=== PATIENT | female | born 1985 | race Caucasian/White ===

== ENCOUNTER 2017-03-27 06:19 | Emergency (ER) | payer OTHER ==
[2017-03-27 11:55] VITALS: BP 107/69; PULSE 89; O2SAT 100
--- NOTE | 2017-03-27 21:18 | OBHP ---
Datetime: 03/27/2017 06:45 IP Adm Impression: Term, intrauterine IP Admit Plan: Discharge home Admit Comment, IP Provider: 31 yo GP0 at 39.6 presents to the [facility] with ctx. She states that the ctx started approx 4 hrs before arrival. ctx every 5 minutes lasting 1 minute. pain 5/10. +: fm -: vb, lof, cp/sob/n/v/dysuria pnc: Dr. Jang obhx: current no abnormalities gyne: denies hx of sti, pap neg medhx: none famhx: htn, asthma surg: sinus and R eye soc: denies: smoking, alcohol, illicit drugs rx: pnv nkda gen: aaox3 cardiac: s1s2 no murmur lungs: clear bilaterally no wheezing abdomen: gravid, nontender negative: calf tenderness, CVT pelvic: closed 31 yo iup 39.6 - monitoring: reactive -close false labor case dw Dr. Maria L Ascencio MD PGY1 , Pt was seen and evaluated with the resident and I agree with the above. Pelvic Type - PN: Adequate Extremities - PN: Normal Abdomen - PN: Normal Back - PN: Normal Breast - PN: Not Done Lungs - PN: Normal Heart - PN: Normal Thyroid - PN: Not Done Neurologic - PN: Normal HEENT - PN: Normal General - PN: Normal FHR - Baseline A Provider: 130 EGA AdmitDate IP: 39.6 Vital Signs Provider: Reviewed; Within Normal Limits Vital Signs Provider Details: pt states bp is in normal range for her IP Chief Complaint: Uterine contractions NICHD Variability Prov Fetus A: Moderate 6-25bpm NICHD Accel Fetus A IP Provider: [id number] FHR Category Provider Fetus A: Category I NICHD Decel Fetus A IP Provider: None Dilatation, Provider: closed Genitourinary Exam: Normal DTRs - PN: Not Done
== END 2017-03-27 07:30 | disposition home or self-care (01) ==
LOC: H.EROB2 06:19
DX: O47.1 False labor at or after 37 completed weeks of gestation (principal); Z3A.39 39 weeks gestation of pregnancy

== ENCOUNTER 2017-03-29 16:46 | Inpatient (IN) | payer OTHER ==
[2017-03-29 16:51] VITALS: BMI 30.2
[2017-03-29 17:21] LABS: BASO % 0.2 % (0.0-2.0); EOS % 0.4 % (0.0-4.0); HEMOGLOBIN 13.8 g/dL (12.0-16.0); LYMPH # 2.1 K/uL (1.0-4.3); LYMPH % 20.4 % (20.0-40.0); MEAN CELL VOLUME 86.5 fl (81.0-99.0); MEAN CORPUSCULAR HGB CONC 33.5 g/dL (33.0-37.0); MEAN PLATELET VOLUME 7.5 fl (7.2-11.7); MONO % 9.8 % (0.0-10.0); NEUT % 69.2 % (50.0-75.0); NRBC % 0.1 % (0.0-0.0); RBC 4.75 Mil/uL (3.80-5.20); RED CELL DISTRIBUTION WIDTH 15.3 % (11.5-14.5); WHITE BLOOD COUNT 10.2 K/uL (4.8-10.8)
[2017-03-29] MEDS ORDERED: Oxytocin 30 UNITS in Sodium Chloride 0.9% 500 ML IV ONE ×2 (17:42→19:45)
--- NOTE | 2017-03-29 21:07 | OBADHP ---
Datetime: 03/29/2017 17:00 Admit Comment, IP Provider: 31 yo ega 40.1 presents after US today revealing oligohydramnios: A FI 2.9. Positive for: FM, CTX Denies: VB, LOF PNC: Dr. Jang gyne: denies hx of sti; pap neg med hx: none famhx: htn, asthma surg: sinus/ R eye soc: denies: smoking, alcohol, illicit drugs rx: pnv NKDA AAOX3 cardiac: s1s2 no murmurs lungs: clear bilaterally, no wheezing abdomen: gravid, nontender neg: CVT, calf tenderness. GBS: unknown; B+, Ab-; hiv -; rpr -, gc/c -, rubella IM, hbsag -; 31 IUP 40.1 -oligohydramnios -admit for IOL - cbc, ts, -iol cervidil Case dw Dr. Geovanni Ascencio MD PGY1 Addendum by dr. Galarza: Patient evalauted independently and I agree with the above. Pt is a @ 40.1 wks for induction because of oligohydramnios, MARIELA = 2. Otherwise patient had abnormal brain U/S findings during Level II, was sent to [facility] and was cleared, no further evaluation recommended. Leonila t has no other antepartum, medical, surgical issues. VE=FT/50/-2 [id number]=[id number] mod casey, +accels, no decels. TOCO = ctxning occasionally. A/p 1. Admit to labor and delivery 2. CBC, type and screen, pt to have food tonight 3. Cervidil for induction. CEFM and TOCO 4. Patient declined pain medication at this time 5. Re-evaluate as needed Pelvic Type - PN: Adequate Extremities - PN: Normal Abdomen - PN: Normal Back - PN: Normal Breast - PN: Not Done Lungs - PN: Normal Heart - PN: Normal Thyroid - PN: Not Done Neurologic - PN: Normal HEENT - PN: Normal General - PN: Normal FHR - Baseline A Provider: 150 Vital Signs Provider: Reviewed; Within Normal Limits IP Chief Complaint: Uterine contractions NICHD Variability Prov Fetus A: Moderate 6-25bpm NICHD Accel Fetus A IP Provider: [id number] FHR Category Provider Fetus A: Category I NICHD Decel Fetus A IP Provider: None Genitourinary Exam: Normal DTRs - PN: Not Done EGA AdmitDate IP: 40.1 IP Adm Impression: Term, intrauterine IP Admit Plan: Admit to unit; Initiate labor induction protocol Datetime: 03/29/2017 16:30 IP Chief Complaint Other: MARIELA 2.9 Datetime: 03/27/2017 06:45 Vital Signs Provider Details: pt states bp is in normal range for her Dilatation, Provider: closed
--- NOTE | 2017-03-30 07:35 | OBPN ---
Datetime: 03/30/2017 07:32 IP Progress Impression: Normal progression of labor IP Informed Consent Obtain: Vaginal Delivery IP Procedures: Sterile Vag Exam IP Progress Plan: Continue present management Contraction Comments Provider: q 5-6 mins FHR - Baseline A Provider: 150 IP Progress Note Comment: Patient evaluated, feeling contractions, did not want pain medication at t his time. VE=/-1 [id number] mod casey, +accels, +early accels TOCO=hollie q 5-6 mins A/p 1. Cervidil removed, patient 1cm. Patient feels contractions, does not want pain medication at thi s time 2. Will possibly start Pitocin for augmentation - will discuss with next attending 3. CEFM and TOCO Vital Signs Provider: Reviewed; Within Normal Limits NICHD Accel Fetus A IP Provider: 15X15 Dilatation, Provider: 1 Effacement, Provider: 70 Station, Provider: -1 NICHD Decel Fetus A IP Provider: Early Datetime: 03/29/2017 17:00 FHR Category Provider Fetus A: Category I NICHD Variability Prov Fetus A: Moderate 6-25bpm Datetime: 03/27/2017 06:45 Vital Signs Provider Details: pt states bp is in normal range for her
--- NOTE | 2017-03-30 10:38 | OBPN ---
Datetime: 03/30/2017 08:50 IP Progress Impression: Reassuring heart rate IP Informed Consent Obtain: Vaginal Delivery; Risks, Benefits and Alternatives Discussed IP Progress Plan: Continue present management; Induction; Cervical Ripening IP Progress Note Comment: OB Hospitalist on-call...sign out rec'd. Pt admitted for Ologihydramnios a t term. She feels fine A: IUP at term/Oligo PLAN: dicsusion with pt about medicatoins/risks/complicatoins...agrees to changing to Cytotec for continued IOL FHR Category Provider Fetus A: Category I NICHD Decel Fetus A IP Provider: None
[2017-03-31] MEDS: Lactated Ringer's 1,000 ML IV SCH ×5 (07:00→15:53)
[2017-03-31] MEDS ORDERED: Oxytocin 30 UNITS in Sodium Chloride 0.9% 500 ML IV SCH (07:00)
[2017-03-31] MEDS ORDERED: Bupivacaine HCl 0.25% PF (10 ml) Inj ONE (08:18)
[2017-03-31] MEDS ORDERED: Fentanyl/Bupivacaine HCl 250 ML EPI ONE (08:20)
--- NOTE | 2017-03-31 12:04 | OBPN ---
Datetime: 03/31/2017 12:01 IP Progress Impression: Normal progression of labor IP Procedures: Artificial ROM IP Progress Note Comment: Patient doing well comfortable with epidural complaints heart rate reactive occasional variable deceleration noted at the time of uterine contractio n. Good [id number] variability and accelerations noted Sterile vaginal exam patient noted to be 8 cm 100% 0 station bulging membranes Intrauterine active labor Artificial rupture of membranes and light meconium Vertex presentation, adequate pelvis, anticipate normal vaginal delivery estimated weight 6- 1/2 pounds Datetime: 03/31/2017 06:50 IP Informed Consent Obtain: Vaginal Delivery; Risks, Benefits and Alternatives Discussed IP Progress Plan: Continue present management; Augmentation; Anesthesia consult FHR - Baseline A Provider: 145 Presentation-Admit: Vertex NICHD Accel Fetus A IP Provider: [id number] FHR Category Provider Fetus A: Category II NICHD Variability Prov Fetus A: Moderate 6-25bpm Dilatation, Provider: 4 NICHD Decel Fetus A IP Provider: Variable
[2017-03-31] MEDS ORDERED: Lidocaine 1% Inj (20ml) ONE (12:09)
[2017-03-31] MEDS ORDERED: Oxycodone/Acetaminophen 5/325 mg Tab PO PRN ×3 (23:47→23:58)
[2017-03-31] MEDS ORDERED: Benzocaine/Menthol SPRAY TOP PRN ×2 (23:47→23:58)
[2017-04-01] MEDS ORDERED: Oxytocin 30 UNITS in Sodium Chloride 0.9% 500 ML IV ONE (01:00)
[2017-04-01] MEDS ORDERED: Oxycodone/Acetaminophen 5/325 mg Tab PO PRN ×2 (01:01)
[2017-04-01] MEDS ORDERED: Benzocaine/Menthol SPRAY TOP PRN (01:01)
[2017-04-01 07:02] LABS: BASO # 0.1 K/uL (0.0-0.2); BASO % 0.3 % (0.0-2.0); HEMOGLOBIN 11.5 g/dL (12.0-16.0); LYMPH # 1.2 K/uL (1.0-4.3); LYMPH % 4.9 % (20.0-40.0); MEAN CELL VOLUME 86.1 fl (81.0-99.0); MEAN CORPUSCULAR HEMOGLOBIN 28.4 pg (27.0-31.0); MEAN PLATELET VOLUME 7.2 fl (7.2-11.7); MONO # 1.6 K/uL (0.0-0.8); MONO % 6.4 % (0.0-10.0); NEUT # 22.5 K/uL (1.8-7.0); NEUT % 88.4 % (50.0-75.0); PLATELET COUNT 197 K/uL (130-400); RBC 4.05 Mil/uL (3.80-5.20); RED CELL DISTRIBUTION WIDTH 15.6 % (11.5-14.5); WHITE BLOOD COUNT 25.4 K/uL (4.8-10.8)
[2017-04-01 13:45] LABS: BANDS 2 % (0-2); LYMPHOCYTE 3 % (20-50); MONOCYTE 4 % (0-10); NEUTROPHIL 91 % (42-75); PLATELET ESTIMATE NORMAL (NORMAL); TOTAL CELLS COUNTED 100
[2017-04-01 13:51] LABS: ANISOCYTOSIS SLIGHT; HYPOCHROMIC SLIGHT
[2017-04-01 13:52] LABS: TOXIC GRANULATION PRESENT
--- NOTE | 2017-04-02 10:21 | OBDCSUM ---
Datetime: 04/02/2017 10:20 Discharged to, Provider: Home Follow up at, Provider: OB Disch Instr Activity: Normal activity Disch Instr Diet: Regular Discharge Instructions, Provider: Routine instructions given Discharge Diagnosis, Provider: Term Delivered Discharge Time: 04/02/2017 10:20 Follow up in weeks, Provider: 6 wks Disch Referrals: None Contraception discussed, Prov: Yes
--- NOTE | 2017-04-02 10:21 | OBPPN ---
Datetime: 04/02/2017 10:19 PP Pain Prov: Within normal limits PP Nausea Prov: Denies PP Flatus Prov: Yes PP Breasts Prov: Normal PP Heart Prov: Normal PP Lungs Prov: Normal PP Abdomen/Uterus Prov: Normal PP Lochia Prov: Normal PP Vulva/Perineum Prov: Normal PP CVA Tenderness Prov: Normal PP Extremities Prov: Normal PP Comments Phys Exam Prov: Fundus firm under umbilicus PP Impression Prov: Normal progression PP Plan Prov: Continue present management PP Progress Note Prov: Pt denies CP, no SOB, no N/V, tolerating PO diet, ambulating/voiding well, mi ld lochia, abdominal pain tolerable with meds A/P PPD #2 1. discharge home 2. Discharge instructions reviewed IP PP Procedures: None Vital Signs Provider PP: Reviewed; Within Normal Limits
[2017-04-02 23:09] VITALS: BP 98/62; PULSE 83; RESP 20; TEMP 97.9; O2SAT 96
== END 2017-04-02 16:55 | disposition home or self-care (01) | DRG 775 ==
LOC: H.L&D 16:51 → H.OB/GYN 04-01 02:15
PROVIDERS: ADMIT Obstetrics & Gynecology Gynecology; ATTEND Obstetrics & Gynecology Gynecology
PROC: 10E0XZZ Delivery of Products of Conception, External Approach (ICD-10-PCS; principal; 2017-03-29)
PROC: 0HQ9XZZ Repair Perineum Skin, External Approach (ICD-10-PCS; 2017-03-29)
PROC: 4A1HXCZ Monitoring of Products of Conception, Cardiac Rate, External Approach (ICD-10-PCS; 2017-03-29)
DX: O41.03X0 Oligohydramnios, third trimester, not applicable or unspecified (principal); O70.0 First degree perineal laceration during delivery; Z37.0 Single live birth; O76 Abnormality in fetal heart rate and rhythm complicating labor and delivery; O77.0 Labor and delivery complicated by meconium in amniotic fluid; Z3A.40 40 weeks gestation of pregnancy